=== PATIENT | female | born 1975 | race Caucasian/White ===

== ENCOUNTER 2016-10-26 11:02 | Emergency (ER) | payer SELFPAY ==
[~2016-10-26] VITALS: Ht 160 cm; Wt 70.0 kg
[~2016-10-26 11:02] MED LIST: HYDR-3533 PO; ZOFR4TAB PO
[2016-10-26 11:04] VITALS: BP 222/113; PULSE 87; RESP 16; TEMP 98.2; O2SAT 97
[2016-10-26 11:21] VITALS: BP 215/105; PULSE 65; RESP 18; O2SAT 97
[2016-10-26] MEDS ORDERED: SODIUM CHLOR 0.9% 1000 ML INJ 1,000 ML IV SCH (11:22)
[2016-10-26 11:25] VITALS: RESP 18; O2SAT 97
--- NOTE | 2016-10-26 11:27 | PD ---
HPI Chief Complaint: Abdominal Pain Time Seen by Provider: 11:27 Travel History International Travel<30 days: No Contact w/Intl Traveler<30days: No Traveled to known affect area: No History of Present Illness HPI 41-year-old female presents to the emergency department for evaluation of abdominal pain over the last month. He has been constant, aching, sometimes sharp. Pain is mostly in the left lower and upper quadrants. Patient has been nauseous with vomiting. Denies any fever or chills. No chest or tightness. All movements are without delilah red or black tarry stool. No urinary symptoms to report. No other symptoms at this time. PFSH Past Medical History Arthritis: No Asthma: Yes Depression: Yes (many years ago) Cancer: No Cardiovascular Problems: No Diabetes: No Diminished Hearing: No Endocrine: No Genitourinary: Yes (KIDNEY STONES) Hepatitis: No Hiatal Hernia: No Hypertension: Yes (PAIN INDUCED) Immune Disorder: No Kidney Stones: Yes Musculoskeletal: No Neurologic: No Psychiatric: Yes Reproductive: No Respiratory: Yes Immunizations Current: Yes Renal Failure: No Thyroid Disease: No ?: Not : 5 Para: 3 Miscarriage: 2 : 0 Ovarian Cysts: Yes Tubal Ligation: Yes Past Surgical History Abdominal Surgery: No Body Medical Devices: NO Cardiac Surgery: No Section: Yes (C-SEC X 3) Ear Surgery: No Endocrine Surgery: No Eye Surgery: No Genitourinary Surgery: Yes (RT. URINARY STENT) Gynecologic Surgery: Yes (C SECTION X 3) Oral Surgery: Yes (TONSILLECTOMY) Pacemaker: No Thoracic Surgery: No Tonsillectomy: Yes Other Surgery: Yes Social History Alcohol Use: Yes (occas) Tobacco Use: No (quit 6yrs ago) Substance Use: Yes (pain killers, been clean four years) Allergies-Medications (Allergen,Severity, Reaction): Coded Allergies: No Known Allergies (Verified , 10/26/16) Reported Meds & Prescriptions Reported Meds & Active Scripts Active Lisinopril 10 Mg Tab 10 Mg PO DAILY Zofran (Ondansetron HCl) 4 Mg Tab 4 Mg PO Q6HR PRN Review of Systems Except as stated in HPI: all other systems reviewed are Neg Physical Exam Narrative GENERAL: Well-nourished female patient, in no acute distress SKIN: Warm and dry. Atraumatic HEAD: Atraumatic. Normocephalic. EYES: Pupils equal and round. No scleral icterus. No injection or drainage. ENT: No nasal bleeding or discharge. Mucous membranes pink and moist. NECK: Trachea midline. No JVD. CARDIOVASCULAR: Regular rate and rhythm. No murmur appreciated. RESPIRATORY: No accessory muscle use. Clear to auscultation. Breath sounds equal bilaterally. GASTROINTESTINAL: Abdomen soft, nondistended. Tenderness elicited deep palpation in the left upper and lower quadrants. No rebound tenderness. No guarding. Hepatic and splenic margins not palpable. MUSCULOSKELETAL: No obvious deformities. No clubbing. No cyanosis. No edema. NEUROLOGICAL: Awake and alert. No obvious cranial nerve deficits. Motor grossly within normal limits. Normal speech. PSYCHIATRIC: Appropriate mood and affect; insight and judgment normal. Data Data Last Documented VS Vital Signs Date Time Temp Pulse Resp B/P Pulse Ox O2 Delivery O2 Flow Rate FiO2 10/26/16 13:36 80 16 211/108 99 10/26/16 11:25 Room Air 10/26/16 11:04 98.2 Orders Complete Blood Count With Diff (10/26/16 11:22) Comprehensive Metabolic Panel (10/26/16 11:22) Lipase (10/26/16 11:22) Prothrombin Time / Inr (Pt) (10/26/16 11:22) Act Partial Throm Time (Ptt) (10/26/16 11:22) Urinalysis - C+S If Indicated (10/26/16 11:22) Ct Abd/Pel W Iv Contrast(Rout) (10/26/16 11:22) Iv Access Insert/Monitor (10/26/16 11:22) Ecg Monitoring (10/26/16 11:22) Oximetry (10/26/16 11:22) Ondansetron Inj (Zofran Inj) (10/26/16 11:30) Sodium Chlor 0.9% 1000 Ml Inj (Ns 1000 M (10/26/16 11:22) Sodium Chloride 0.9% Flush (Ns Flush) (10/26/16 11:30) Ed Urine Pregnancytest Poc (10/26/16 11:22) Morphine Inj (Morphine Inj) (10/26/16 12:15) Iohexol 350 Inj (Omnipaque 350 Inj) (10/26/16 12:46) Labs Laboratory Tests Test 10/26/16 11:38 White Blood Count 7.9 TH/MM3 Red Blood Count 4.18 MIL/MM3 Hemoglobin 11.8 GM/DL Hematocrit 36.2 % Mean Corpuscular Volume 86.6 FL Mean Corpuscular Hemoglobin 28.2 PG Mean Corpuscular Hemoglobin 32.6 % Concent Red Cell Distribution Width 18.0 % Platelet Count 354 TH/MM3 Mean Platelet Volume 7.3 FL Neutrophils (%) (Auto) 79.4 % Lymphocytes (%) (Auto) 14.0 % Monocytes (%) (Auto) 5.7 % Eosinophils (%) (Auto) 0.2 % Basophils (%) (Auto) 0.7 % Neutrophils # (Auto) 6.3 TH/MM3 Lymphocytes # (Auto) 1.1 TH/MM3 Monocytes # (Auto) 0.4 TH/MM3 Eosinophils # (Auto) 0.0 TH/MM3 Basophils # (Auto) 0.1 TH/MM3 CBC Comment DIFF FINAL Differential Comment Prothrombin Time 11.4 SEC Prothromb Time International 1.0 RATIO Ratio Activated Partial 23.6 SEC Thromboplast Time Urine Color YELLOW Urine Turbidity HAZY Urine pH 5.5 Urine Specific [place] 1.032 Urine Protein 30 mg/dL Urine Glucose (UA) NEG mg/dL Urine Ketones NEG mg/dL Urine Occult Blood LARGE Urine Nitrite NEG Urine Bilirubin NEG Urine Urobilinogen LESS THAN 2.0 MG/DL Urine Leukocyte Esterase NEG Urine RBC 157 /hpf Urine WBC 1 /hpf Urine Squamous Epithelial 2 /hpf Cells Urine Mucus FEW /lpf Microscopic Urinalysis Comment CULT NOT INDICATED Sodium Level 141 MEQ/L Potassium Level 4.9 MEQ/L Chloride Level 107 MEQ/L Carbon Dioxide Level 24.0 MEQ/L Anion Gap 10 MEQ/L Blood Urea Nitrogen 11 MG/DL Creatinine 0.94 MG/DL Estimat Glomerular Filtration 66 ML/MIN Rate Random Glucose 108 MG/DL Calcium Level 8.6 MG/DL Total Bilirubin 0.4 MG/DL Aspartate Amino Transf 47 U/L (AST/SGOT) Alanine Aminotransferase 20 U/L (ALT/SGPT) Alkaline Phosphatase 77 U/L Total Protein 8.2 GM/DL Albumin 3.9 GM/DL Lipase 195 U/L [facility] Medical Decision Making Medical Screen Exam Complete: Yes Emergency Medical Condition: Yes Medical Record Reviewed: Yes Differential Diagnosis Colitis versus a grade tightest versus gastritis versus gastroenteritis Narrative Course 41-year-old female presents to the emergency department for evaluation of abdominal pain. Patient appears without distress. She does have left upper and lower quadrant tenderness to deep palpation. Patient is also hypertensive here. States that she is always hypertensive and in review of her chart patient has had high blood pressure here in the past consistent with what it is today. She is asymptomatic. CBC and CMP are without acute concern. Urinalysis is hazy with 30 proteinuria, large occult blood, 37 RBC. Patient is on her menstrual cycle. Culture is not indicated. [address] is with non-distention vs wall thickening of the ascending, descending, sigmoid colon. No inflammatory changes. Otherwise unremarkable CT of the abdomen and pelvis. I have discussed this with the patient in encouraged her to seek gastroenterology evaluation. While in the process of discussing discharge instructions, pt informs me she has not received her pain medication. Nursing staff states they "are getting to it." After medication is administered, pt will be reassessed and discharged. Patient's pain medication was administered. She'll be given a prescription for her blood pressure and discharged home. Strongly encouraged to follow-up with a primary care provider and return immediately with any acute worsening of symptoms. Diagnosis Primary Impression: Abdominal pain Qualified Code: R10.32 - Left lower quadrant pain Additional Impressions: Nausea & vomiting Qualified Code: R11.2 - Non-intractable vomiting with nausea, unspecified vomiting type Hypertension Qualified Code: I10 - Essential hypertension Referrals: [facility] [employer] Primary Care Physician Patient Instructions: Abdominal Pain (ED), General Instructions Additional Instructions: Avoid abrasive and acidic foods Clear liquid diet, advance tolerated Follow-up with a primary care provider Return immediately with any acute worsening of symptoms Med/Other Pt SpecificInfo: Prescription(s) given Scripts Lisinopril 10 Mg Tab10 Mg PO DAILY #30 TAB Ref 0 Prov:Vannesa Peoples 10/26/16 Ondansetron (Zofran)4 Mg Tab4 Mg PO Q6HR PRN (NAUSEA OR VOMITING) #10 TAB Ref 0 Prov:Vannesa Peoples 10/26/16 Disposition: 01 DISCHARGE HOME Condition: Stable Vannesa Peoples Oct 26, 2016 11:27
[2016-10-26] MEDS ORDERED: ONDANSETRON HCL 4 MG/2 ML VIAL IVP ONE (11:30)
[2016-10-26] MEDS ORDERED: SODIUM CHLORIDE 0.9% FLUSH 5 ML FLUSH IVF PRN (11:30)
[2016-10-26 11:52] LABS: AUTOMATED NEUTROPHIL # 6.3 TH/MM3 (1.8-7.7); BASOPHIL # 0.1 TH/MM3 (0-0.2); BASOPHIL % 0.7 % (0.0-2.0); EOSINOPHIL % 0.2 % (0.0-4.0); HEMATOCRIT 36.2 % (35.0-46.0); HEMO FLAGS DIFF FINAL; LYMPHOCYTE # 1.1 TH/MM3 (1.0-4.8); MEAN CELL VOLUME 86.6 FL (80.0-100.0); MEAN CORPUSCULAR HEMOGLOBIN 28.2 PG (27.0-34.0); MEAN CORPUSCULAR HGB CONC 32.6 % (32.0-36.0); MONO % 5.7 % (0.0-8.0); NEUT % 79.4 % (16.0-70.0); PLATELET COUNT 354 TH/MM3 (150-450); RED BLOOD COUNT 4.18 MIL/MM3 (4.00-5.30); WHITE BLOOD COUNT 7.9 TH/MM3 (4.0-11.0)
[2016-10-26 11:56] LABS: BLOOD, URINE LARGE (NEG); COMMENT (UR) CULT NOT INDICATED; CULTURE IF INDICATED CULT NOT INDICATED; GLUCOSE,URINE NEG (NEG); KETONE, URINE NEG (NEG); MUCUS URINE FEW /lpf (OCC); NITRITE,URINE NEG (NEG); PH, URINE 5.5 (5.0-8.5); SQUAMOUS EPITHELIAL CELL URINE 2 /hpf (0-5); URINE COLOR YELLOW (YELLW/STRAW)
[2016-10-26 12:01] LABS: PROTHROMBIN TIME - PATIENT 11.4 SEC (9.8-11.6)
[2016-10-26 12:02] LABS: APTT (PATIENT) 23.6 SEC (24.3-30.1)
[2016-10-26] MEDS ORDERED: MORPHINE SULFATE 4 MG/ML INJ IV PUSH ONE (12:15)
[2016-10-26 12:18] LABS: ALKALINE PHOSPHATASE 77 U/L (45-117); TOTAL BILIRUBIN ADULT 0.4 MG/DL (0.2-1.0)
[2016-10-26 12:19] LABS: ALT (GPT) 20 U/L (10-53); ANION GAP 10 MEQ/L (5-15); AST (GOT) 47 U/L (15-37); BLOOD UREA NITROGEN 11 MG/DL (7-18); CHLORIDE 107 MEQ/L (98-107); GLOMERULAR FILTRATION RATE 66 ML/MIN (>89); POTASSIUM 4.9 MEQ/L (3.5-5.1); SODIUM (NA) 141 MEQ/L (136-145)
[2016-10-26] MEDS ORDERED: IOHEXOL 350 MG/ML 10 ML VIAL (for RAD DIAG) IV ONE (12:46)
--- NOTE | 2016-10-26 12:54 | RADRPT ---
EXAM DATE/TIME: 10/26/2016 12:32 [facility] COMPARISON: CT ABDOMEN & PELVIS W/O CONTRAST, February 07, 2016, 22:15. INDICATIONS : Left abdominal pain. IV CONTRAST: 70 cc Omnipaque 350 (iohexol) IV ORAL CONTRAST: No oral contrast ingested. RADIATION DOSE: 6.54 CTDIvol (mGy) MEDICAL HISTORY : Hypertension. SURGICAL HISTORY : Tubal ligation. ENCOUNTER: Initial ACUITY: 1 month PAIN SCALE: 5/10 LOCATION: Left abdomen TECHNIQUE: Volumetric scanning of the abdomen and pelvis was performed. Using automated exposure control and ad justment of the mA and/or kV according to patient size, radiation dose was kept as low as reasonably achievable to obtain optimal diagnostic quality images. FINDINGS: LOWER LUNGS: The visualized lower lungs are clear. LIVER: Homogeneous density without lesion. There is no dilation of the biliary tree. No calcified gallston es. SPLEEN: Normal size without lesion. PANCREAS: Within normal limits. KIDNEYS: Normal in size and shape. There is no mass, stone or hydronephrosis. ADRENAL GLANDS: Within normal limits. VASCULAR: There is no aortic aneurysm. BOWEL/MESENTERY: Wall thickening versus nondistention of portions of the ascending, descending and sigmoid colon. No i nflammatory changes. No perforation or abscess. There is no free intraperitoneal air or fluid. ABDOMINAL WALL: Within normal limits. RETROPERITONEUM: There is no lymphadenopathy. BLADDER: No wall thickening or mass. REPRODUCTIVE: Within normal limits. INGUINAL: There is no lymphadenopathy or hernia. MUSCULOSKELETAL: Within normal limits for patient age. CONCLUSION: 1. Areas of nondistention versus wall thickening of the ascending, descending and sigmoid colon. No i nflammatory changes. 2. Otherwise unremarkable CT abdomen/pelvis. Darrick Regan MD on October 26, 2016 at 12:48 Board Certified Radiologist. This report was verified electronically.
[2016-10-26] MEDS ORDERED: ZOFR4TAB PO (13:01)
[2016-10-26 13:35] VITALS: BP 205/108; PULSE 88; RESP 16; O2SAT 99
[2016-10-26 13:36] VITALS: BP 211/108; PULSE 80; RESP 16; O2SAT 99
[2016-10-26] MEDS ORDERED: LISI10TA3 PO (13:40)
== END 2016-10-26 14:14 | disposition home or self-care (01) ==
LOC: NEPE 11:02
DX: R10.32 Left lower quadrant pain (principal); R11.2 Nausea with vomiting, unspecified; I10 Essential (primary) hypertension; Z87.891 Personal history of nicotine dependence
CPT/HCPCS: 74177; 80053; 81001; 83690; 84703; 85025; 85610; 85730; 96361; 96374; 96375; 99284; J2270; J2405; J7030; Q9967